=== PATIENT | female | born 1940 | race Caucasian/White ===

== ENCOUNTER 2017-08-09 19:29 | Emergency (ER) | payer MEDICARE, BC, SELFPAY | END 2017-08-09 23:24 | disposition admitted as inpatient to this hospital (09) | PROVIDERS: Family Provider Internal Medicine; PCP Internal Medicine | DX: K86.1 Other chronic pancreatitis (principal) | CPT/HCPCS: 80053; 82150; 83605; 83690; 84484; 85025; 93005; 93010; 96361; 96374; 96375; 96376; 99058; 99285; J2270; J2405 ==

== ENCOUNTER → 2017-09-05 08:51 | Outpatient (CLI) | payer MEDICARE, BC, SELFPAY ==
[2017-09-05 10:05] LABS: Digoxin 1.1 ng/mL (0.8-2.0)
== END ==
PROVIDERS: PCP Internal Medicine; Visit Provider Internal Medicine Cardiovascular Disease
DX: R00.2 Palpitations (principal); I47.1 Supraventricular tachycardia
CPT/HCPCS: 36415; 80162

== ENCOUNTER 2017-09-19 22:44 | Inpatient (IN) | payer MEDICARE, BC, SELFPAY ==
[2017-09-19 22:51] VITALS: BP 155/84; PULSE 87; RESP 20; TEMP 37.2; O2SAT 99
--- NOTE | 2017-09-19 23:05 | ED.ABDPAIN ---
HPI - Abdominal Pain General Chief Complaint: Abdominal Pain Stated Complaint: PAIN LEFT ARM AND NECK Time Seen by Provider: 09/19/17 22:47 Source: patient Mode of arrival: ambulatory Limitations: no limitations History of Present Illness HPI narrative: 77-year-old female with a history of pancreatitis from unknown etiology has been evaluated by GI at [facility] and also by her primary care doctor for this. She states that throughout today she has had worsening epigastric pain consistent with her prior diagnosis of pancreatitis however today she also has left arm and left neck pain. Denies any chest pain. Has had some nausea but no vomiting. No change in bowel habits. No fevers. Here for evaluation. Related Data Home Medications Medication Instructions Recorded Confirmed MINOXIDIL (ROGAINE 5% TOPICAL 5 TP #0 02/23/11 09/03/17 FOAM~) COENZYME Q10 (COQ10) 100 mg PO Q DAY #0 05/23/11 09/20/17 niacin 250 mg PO Q DAY #0 05/23/11 09/20/17 [BIOTIN] 1,500 mg PO QDAY #0 06/20/17 09/03/17 [FLAXSEED OIL] 2 cap PO QDAY #0 06/20/17 09/03/17 conjugated estrogens [Premarin] 0.3 mg PO QDAY #0 06/20/17 09/20/17 docusate sodium 100 mg PO QDAYP PRN #0 MDD 100 06/20/17 09/20/17 naproxen sodium [Aleve] 220 mg PO QDAY #0 06/20/17 09/20/17 potassium chloride PO SEE INSTRUCTIONS #0 06/20/17 09/03/17 spironolactone 25 mg QDAY #0 06/20/17 09/20/17 vit C,N-Yx-bfihr-lutein-zeaxan 1 cap PO BID #0 06/20/17 09/03/17 [PreserVision AREDS 2] Previous Rx's Medication Instructions Recorded digoxin [Lanoxin] 0.25 mg PO QDAY #90 tab 04/03/17 magnesium oxide 400 mg PO BID #180 tab 04/03/17 verapamil [Verelan] 180 mg PO QDAY #90 cap 04/03/17 lorazepam [Ativan] 0.5 mg PO Q6HP #50 tab 07/09/17 Allergies Allergy/AdvReac Type Severity Reaction Status Date / Time hydromorphone [HYDROMORPHONE] Allergy Severe heart Verified 09/03/17 10:57 palpitations ketorolac [KETOROLAC] Allergy Mild GI Verified 09/03/17 10:57 meloxicam [MELOXICAM] Allergy Unknown Verified 09/03/17 10:57 BANDAGE TAPE Allergy Unknown Uncoded 09/03/17 10:57 Review of Systems Constitutional Denies chills, Denies fever(s), Denies lethargy and Denies weakness ENT Comments: Left-sided neck pain Cardiovascular Denies chest pain, Denies irregular heart rhythm, Denies lightheadedness, Denies palpitations, Denies dyspnea, Denies dyspnea on exertion and Denies orthopnea Respiratory Denies cough, Denies dyspnea, Denies dyspnea on exertion and Denies wheezing Gastrointestinal Gastrointestinal: Reports abdominal pain, Denies change in stool character, Reports nausea and Denies vomiting Genitourinary Denies dysuria Musculoskeletal Comments: Left arm pain Integumentary/Breasts Denies pruritus, Denies erythema, Denies rash and Denies wounds Neurologic Denies weakness Endocrine Denies palpitations Hematologic/Lymphatic Denies easy bruising Allergic/Immunologic Denies wheezing PFSH Medical History Paroxysmal supraventricular tachycardia (Chronic 02/23/11) Acquired hypothyroidism (Chronic 11/04/12) Peripheral neuropathy (Chronic 02/27/14) Peripheral edema (Chronic 02/23/11) Constipation (Chronic) Pancreatitis (Inactive) Surgical History History of cataract removal with insertion of prosthetic lens S/P total abdominal hysterectomy and bilateral salpingo-oophorectomy Status post cholecystectomy Family History Father Family hx colonic polyps Social History household members: spouse Smoking Status: Never smoker alcohol intake: never Exam Initial Vital Signs Initial Vital Signs: Vital Signs Temperature 98.9 F 09/19/17 22:51 Pulse Rate 87 09/19/17 22:51 Respiratory Rate 20 09/19/17 22:51 Blood Pressure 155/84 H 09/19/17 22:51 Pulse Oximetry 99 09/19/17 22:51 Const General: cooperative and well developed Nutritional Appearance: well nourished Orientation: alert, awake, oriented x3 and not confused Chest Chest: normal inspection of the chest, No localized rib tenderness with anteroposterior compression and No tenderness Resp Effort & Inspection: normal respiratory effort, able to speak in complete sentences, no respiratory distress and no use of accessory muscles Auscultation: clear to auscultation bilaterally, no rales, no rhonchi and no wheezes Cardio Rate: regular rate Rhythm: regular rhythm Heart Sounds: no click, no gallops, no murmurs and no rubs Pulses: normal peripheral pulses GI Inspection: normal to inspection and non-distended Palpation: soft, No firm, guarding and No rigid Other: Epigastric abdominal pain no rebound some guarding Back/Spine/Pelvis Back: No CVA tenderness Skin General: no rashes or lesions noted, No jaundice and No petechiae Neuro General: alert, awake, oriented x3, gait normal and no focal motor deficits Speech: speech normal Extrem General: full ROM, no clubbing, cyanosis or edema, no pedal edema and no calf tenderness Course Orders Ordered: ED Orders 09/19/17 22:51 EKG-12 Lead Stat 09/19/17 23:01 Complete Blood Count AUTO DIFF Stat Comprehensive Metabolic Panel Stat Lipase Stat Troponin I Stat 09/19/17 23:51 XR chest 1V Stat 09/20/17 00:51 Consult to Physician Routine 09/20/17 05:00 Troponin I Stat Ondansetron HCl 4 mg/ Sodium (Chloride) 102 mls @ 204 mls/hr IV Q6HR PRN PRN Reason: Nausea And Vomiting Sodium Chloride (Normal Saline 0.9%) 1,000 mls @ 150 mls/hr IV CONT KWAKU Last Admin: 09/20/17 01:50 Dose: 150 mls/hr Morphine Sulfate (Morphine) 4 mg IV Q4H PRN PRN Reason: Pain, Severe Vital Signs - 8 hr 09/19/17 22:51 09/19/17 23:30 09/20/17 01:25 Temperature 98.9 F Pulse Rate 87 79 82 Respiratory Rate 20 16 19 Blood Pressure 155/84 H 135/52 H Blood Pressure [Right Arm] 139/53 H Pulse Oximetry 99 99 99 09/20/17 01:46 Temperature 98.5 F Pulse Rate 91 H Respiratory Rate 16 Blood Pressure 148/61 H Blood Pressure [Right Arm] Pulse Oximetry 99 MDM - Abdominal Pain Lab Data Attestation: I reviewed the patient's lab results. Result diagrams: 09/19/17 23:01 09/19/17 23:01 Lab Results 09/19/17 09/19/17 09/19/17 Range/Units 23:01 23:01 23:01 WBC 12.2 H (4.5-11.0) X10^3/uL RBC 4.53 (4.0-5.2) X10^6/uL Hgb 14.1 (12.0-16.0) g/dL Hct 41.4 (36-46) % MCV 91.2 (80-100) fL MCH 31.0 (26-34) PG MCHC 34.0 (30-36) % RDW 12.5 (11.6-14.8) % Plt Count 239 (150-400) X10^3/uL Neut % (Auto) 72.4 (50-75) % Lymph % (Auto) 21.4 L (25-40) % Hartley % (Auto) 4.8 (3-14) % Eos % (Auto) 1.1 L (2-4) % Baso % (Auto) 0.3 (0-2) % Neut # (Auto) 8800 H (0413-7567) /uL Sodium 141 (137-145) mmol/L Potassium 4.0 (3.4-5.1) mmol/L Chloride 101 (98-107) mmol/L Carbon Dioxide 29 (22-32) mmol/L BUN 19 H (7-17) mg/dL Creatinine 0.60 (0.52-1.04) mg/dL Estimated GFR > 60.0 (>60) mL/min BUN/Creatinine Ratio 31.7 H (6-22) Glucose 108 (80-110) mg/dL Calcium 9.7 (8.4-10.2) mg/dL Total Bilirubin 0.6 (0.2-1.3) mg/dL AST 32 (14-36) IU/L ALT 27 (9-52) IU/L Alkaline Phosphatase 58 (38-126) U/L Troponin I < 0.012 (0.01-0.034) ng/mL Total Protein 6.8 (6.3-8.2) g/dL Albumin 4.1 (3.5-5.0) g/dL Globulin 2.7 (1.7-4.1) g/dL Albumin/Globulin Ratio 1.5 (1.0-2.8) Lipase 40421 H (23-300) U/L ECG Data Attestation: I personally reviewed and interpreted this ECG as follows: Prior ECG tracings: not available for review Interpretation: Sinus rhythm Ventricular rate is 78 Normal axis Normal intervals Normal QRS Nonspecific ST T wave changes MDM Narrative Medical decision making narrative: Patient with epigastric abdominal pain and a elevated lipase concerning for recurrence of her pancreatitis. Denied need for pain medication here in the emergency department. Nonspecific ST changes on her EKG and a troponin that was negative. I suspect that her left arm symptoms are referred pain from the pancreatitis. Discussed the case with Dr. Najera who is on-call for the patient's primary care doctor group. Will admit the patient for pain control and IV fluids and NPO. We will repeat the troponin in the morning. Discussed this with the patient and . They expressed understanding and agreement with plan. Discharge Plan Departure Patient Disposition: Admitted As Inpatient Clinical Impression: Pancreatitis Discharge Date/Time: 09/20/17 01:30 Interventions: ED Discharge Assessment Last Done: 09/20/17 01:25 Admit Date/Time: 09/20/17 01:14 Admit Provider: Sam Ibrahim
[2017-09-19 23:09] LABS: Add Manual Diff / Slide Review NO; Basophils Percent Auto 0.3 % (0-2); Eosinophils Percent Auto 1.1 % (2-4); Hematocrit 41.4 % (36-46); Hemoglobin 14.1 g/dL (12.0-16.0); Lymphocytes Percent Auto 21.4 % (25-40); Mean Corpuscular Volume 91.2 fL (80-100); Monocytes Percent Auto 4.8 % (3-14); Neutrophils Absolute Auto 8800 /uL (3000-5900); Neutrophils Percent Auto 72.4 % (50-75); Platelet Count 239 X10^3/uL (150-400); Red Blood Cell Count 4.53 X10^6/uL (4.0-5.2); Red Cell Distribution Width 12.5 % (11.6-14.8); White Blood Cell Count 12.2 X10^3/uL (4.5-11.0)
[2017-09-19 23:16] LABS: Alanine Aminotransferase 27 IU/L (9-52); Albumin 4.1 g/dL (3.5-5.0); Albumin Globulin Ratio 1.5 (1.0-2.8); Alkaline Phosphatase 58 U/L (38-126); Aspartate Aminotransferase 32 IU/L (14-36); BUN Creatinine Ratio 31.7 (6-22); Bilirubin Total 0.6 mg/dL (0.2-1.3); Blood Urea Nitrogen 19 mg/dL (7-17); Calcium 9.7 mg/dL (8.4-10.2); Carbon Dioxide 29 mmol/L (22-32); Chloride 101 mmol/L (98-107); Estimated Glomerular Filt Rate > 60.0 mL/min (>60); Globulin 2.7 g/dL (1.7-4.1); Glucose 108 mg/dL (80-110); Sodium 141 mmol/L (137-145); Total Protein 6.8 g/dL (6.3-8.2)
[2017-09-19 23:17] LABS: HEMOLYSIS 54 (0-50)
--- NOTE | 2017-09-19 23:20 | PC.NURSE ---
Pt states thinks having pancreatitis onset 3 hours prior to arrival 3-10 pain with several episodes since May 2017. Also reports having left arm pain that radiated to neck prior to arrival, intermittent and not present at assessment time. Denies sob or CP. 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
[2017-09-19 23:24] LABS: Troponin I < 0.012 ng/mL (0.01-0.034)
[2017-09-19 23:30] VITALS: BP 139/53; PULSE 79; RESP 16; O2SAT 99
[2017-09-19 23:39] LABS: Lipase 41600 U/L (23-300)
--- NOTE | 2017-09-19 23:51 | DI.RAD.S_ITS ---
PROCEDURE: XR CHEST 1V INDICATIONS: Chest pain TECHNIQUE: One view of the chest was acquired. COMPARISON: [facility], , CHEST 1 VIEW, 06/20/2017, 15:10. FINDINGS: Surgical changes and devices: None. Lungs and pleura: No pleural effusions or pneumothorax. Lungs are clear. Mediastinum: Mediastinal contours appear normal. Heart size is normal. Bones and chest wall: No suspicious bony lesions. Overlying soft tissues appear unremarkable. IMPRESSION: No acute cardiopulmonary abnormality. Source of chest pain not seen. Dictated by: Hussain Camacho M.D. on 09/20/2017 at 8:10 Approved by: Hussain Camacho M.D. on 09/20/2017 at 8:11
[2017-09-20 01:25] VITALS: BP 135/52; PULSE 82; RESP 19; O2SAT 99
[2017-09-20 01:46] VITALS: BP 148/61; PULSE 91; RESP 16; TEMP 36.9; O2SAT 99
[2017-09-20] MEDS: SODIUM CHLORIDE 0.9% 1,000 ML 150 ML IV (01:50)
[2017-09-20 02:25] VITALS: BMI 20.7
[2017-09-20] MEDS: MORPHINE 4 MG/ML INJ IV (03:26)
--- NOTE | 2017-09-20 05:43 | PC.NURSE ---
NOC Shift: Pt admitted tonight for acute Pancreatitis, has history of multiple admissions for this. Having acute left shoulder, back pain. Troponin negative on admit. Pt AAOx3, w/o distress. VSS, off tele. Ambulates w/o difficulty. NPO w/active BT's, abdomen soft, nondistended. IVF's started after new PIV started. Admitted floor care.
[2017-09-20 05:44] LABS: Troponin I < 0.012 ng/mL (0.01-0.034)
[2017-09-20 07:34] VITALS: BP 120/37; PULSE 93; RESP 16; TEMP 36.8; O2SAT 98
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
[2017-09-20] MEDS: KCL 20 MEQ IN NS 1,000 ML 100 MEQ IV (08:45)
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
--- NOTE | 2017-09-20 10:30 | CM.DANOTE ---
DCP Assessment: Pt is a 77 yo female, resident of [place]. Pt's PCP is Dr Ibrahim; Insurance is Medicare/[employer]. Pt w/multiple admissions for pancreatitis. Pt awaiting transfer this morning to [facility] pending bed opening. Dr Ibrahim is hopeful pt can be re-evaluated for replacement of pancreatic duct stents. RADHA Guillory
--- NOTE | 2017-09-20 13:39 | PC.NURSE ---
pt transferred at this time to [facility] to follow up for repeated pancreatitis=- all questions answered to pts satisfaction
--- NOTE | 2017-09-20 16:57 | PM.DS.1 ---
History of Present Illness Chief complaint: PAIN LEFT ARM AND NECK Narrative: Zahida Ashley is a 77 year old female who was admitted for her 4th hospitalization for pancreatitis. Patient presented to the emergency department late last evening the day prior to admission with symptoms of abdominal pain back pain and left shoulder pain. This is very similar what she has felt before with previous admissions for pancreatitis. Patient reports feeling absolutely normal the morning of the 19 of September before feeling worse in the evening and presenting to the ER later that day. She does admit to perhaps a week or so of thoracic midback pain but her abdomen was completely asymptomatic and she did really think that was connected to her pancreas. Patient has been admitted several times as above. She was transferred to [place] at [facility] where she had endoscopic ultrasound with her 1st hospitalization and no evidence of malignancy was noted. She responded to normal treatment with IV fluids IV meds and kept NPO. She returned home but rapidly had recurrence of symptoms. She was actually sent to [facility] in [place], were the GI evaluated her and sent her back to [facility] in [place]. There she underwent repeat ERCP which showed mild dilatation of the pancreatic duct, sphincterotomy was performed upon which a small amount of nodular appearing tissue seem to emerge from the biliary orifice into the biliary sphincter. This was biopsied and subsequently returned without evidence of malignancy. Stent was placed x2 into the biliary tree and then a stent was placed into the pancreatic duct as well. Patient did well with that hospitalization was discharged home. Was seen in consultation by GI in [place] move upon receipt of normal pathology from the biopsies removed her stents in another procedure approximately 10 days or so after they had been placed. Patient has done well for about 2 weeks since the stents were removed (I do not actually have a procedure note to give me the exact date of stent removal). She now presents with recurrent pancreatitis as above. Discharge Providers Date of admission: 09/20/17 01:14 Primary care physician: Sam Ibrahim MD Consults: Discharge provider: Sam Ibrahim MD Discharge Date: 09/20/17 Summary Discharge Diagnosis: 1. Acute pancreatitis 2. History SVT, not present during this hospitalization Hospital Course: Patient was admitted to the hospital made NPO with IV fluids IV antiemetics and IV pain medicine as per usual protocol for acute pancreatitis. Given this was her 4th hospitalization [facility] was contacted and her case and care and prior history was discussed with hospitalist at that facility. He readily agreed to accept the patient in transfer with consultation by Gastroenterology upon her arrival for probable repeat ERCP and/or stent placement Patient had really minor symptoms during her stay here at [facility]. She was not here long enough to repeat blood work. She was cardiovascularly stable. No evidence of any complicating factor. Exam Vital Signs (past 8 hours): Pulse Oximetry 98 Oxygen Delivery Method Room Air Objective Labs Result Diagrams: 09/19/17 23:01 09/19/17 23:01 Labs: Laboratory Results - last 24 hr 09/19/17 09/19/17 09/19/17 23:01 23:01 23:01 WBC 12.2 H RBC 4.53 Hgb 14.1 Hct 41.4 MCV 91.2 MCH 31.0 MCHC 34.0 RDW 12.5 Plt Count 239 Neut % (Auto) 72.4 Lymph % (Auto) 21.4 L [place] % (Auto) 4.8 Eos % (Auto) 1.1 L Baso % (Auto) 0.3 Neut # (Auto) 8800 H Sodium 141 Potassium 4.0 Chloride 101 Carbon Dioxide 29 BUN 19 H Creatinine 0.60 Estimated GFR > 60.0 BUN/Creatinine Ratio 31.7 H Glucose 108 Calcium 9.7 Total Bilirubin 0.6 AST 32 ALT 27 Alkaline Phosphatase 58 Troponin I < 0.012 Total Protein 6.8 Albumin 4.1 Globulin 2.7 Albumin/Globulin Ratio 1.5 Lipase 65240 H Nasal Screen MRSA (PCR) 09/20/17 09/20/17 03:25 05:02 WBC RBC Hgb Hct MCV MCH MCHC RDW Plt Count Neut % (Auto) Lymph % (Auto) [place] % (Auto) Eos % (Auto) Baso % (Auto) Neut # (Auto) Sodium Potassium Chloride Carbon Dioxide BUN Creatinine Estimated GFR BUN/Creatinine Ratio Glucose Calcium Total Bilirubin AST ALT Alkaline Phosphatase Troponin I < 0.012 Total Protein Albumin Globulin Albumin/Globulin Ratio Lipase Nasal Screen MRSA (PCR) Negative for mrsa Discharge Plan Discharge Plan Discharge Problem: Pancreatitis Patient Disposition: [facility] Under care of provider: Vladimir Wang MD Discharge Health Status Multidrug resistant organism: No MDRO Discharge Data Primary Care Provider: Sam Ibrahim Attending Provider: Sam Ibrahim Admit Date/Time: 09/20/17 01:14
--- NOTE | 2017-09-20 17:17 | P.DS_ITS ---
History of Present Illness Chief complaint: PAIN LEFT ARM AND NECK Narrative: Zahida Ashley is a 77 year old female who was admitted for her 4th hospitalization for pancreatitis. Patient presented to the emergency department late last evening the day prior to admission with symptoms of abdominal pain back pain and left shoulder pain. This is very similar what she has felt before with previous admissions for pancreatitis. Patient reports feeling absolutely normal the morning of the 19 of September before feeling worse in the evening and presenting to the ER later that day. She does admit to perhaps a week or so of thoracic midback pain but her abdomen was completely asymptomatic and she did really think that was connected to her pancreas. Patient has been admitted several times as above. She was transferred to [place] at [facility] where she had endoscopic ultrasound with her 1st hospitalization and no evidence of malignancy was noted. She responded to normal treatment with IV fluids IV meds and kept NPO. She returned home but rapidly had recurrence of symptoms. She was actually sent to [facility] in [place], were the GI evaluated her and sent her back to [facility] in [place]. There she underwent repeat ERCP which showed mild dilatation of the pancreatic duct, sphincterotomy was performed upon which a small amount of nodular appearing tissue seem to emerge from the biliary orifice into the biliary sphincter. This was biopsied and subsequently returned without evidence of malignancy. Stent was placed x2 into the biliary tree and then a stent was placed into the pancreatic duct as well. Patient did well with that hospitalization was discharged home. Was seen in consultation by GI in [place] move upon receipt of normal pathology from the biopsies removed her stents in another procedure approximately 10 days or so after they had been placed. Patient has done well for about 2 weeks since the stents were removed (I do not actually have a procedure note to give me the exact date of stent removal). She now presents with recurrent pancreatitis as above. Discharge Providers Date of admission: 09/20/17 01:14 Primary care physician: Sam Ibrahim MD Consults: Discharge provider: Sam Ibrahim MD Discharge Date: 09/20/17 Summary Discharge Diagnosis: 1. Acute pancreatitis 2. History SVT, not present during this hospitalization Hospital Course: Patient was admitted to the hospital made NPO with IV fluids IV antiemetics and IV pain medicine as per usual protocol for acute pancreatitis. Given this was her 4th hospitalization [facility] was contacted and her case and care and prior history was discussed with hospitalist at that facility. He readily agreed to accept the patient in transfer with consultation by Gastroenterology upon her arrival for probable repeat ERCP and/or stent placement Patient had really minor symptoms during her stay here at [facility]. She was not here long enough to repeat blood work. She was cardiovascularly stable. No evidence of any complicating factor. Exam Vital Signs (past 8 hours): Pulse Oximetry 98 Oxygen Delivery Method Room Air Objective Labs Result Diagrams: 09/19/17 23:01 09/19/17 23:01 Labs: Laboratory Results - last 24 hr 09/19/17 09/19/17 09/19/17 23:01 23:01 23:01 WBC 12.2 H RBC 4.53 Hgb 14.1 Hct 41.4 MCV 91.2 MCH 31.0 MCHC 34.0 RDW 12.5 Plt Count 239 Neut % (Auto) 72.4 Lymph % (Auto) 21.4 L [place] % (Auto) 4.8 Eos % (Auto) 1.1 L Baso % (Auto) 0.3 Neut # (Auto) 8800 H Sodium 141 Potassium 4.0 Chloride 101 Carbon Dioxide 29 BUN 19 H Creatinine 0.60 Estimated GFR > 60.0 BUN/Creatinine Ratio 31.7 H Glucose 108 Calcium 9.7 Total Bilirubin 0.6 AST 32 ALT 27 Alkaline Phosphatase 58 Troponin I < 0.012 Total Protein 6.8 Albumin 4.1 Globulin 2.7 Albumin/Globulin Ratio 1.5 Lipase 57486 H Nasal Screen MRSA (PCR) 09/20/17 09/20/17 03:25 05:02 WBC RBC Hgb Hct MCV MCH MCHC RDW Plt Count Neut % (Auto) Lymph % (Auto) [place] % (Auto) Eos % (Auto) Baso % (Auto) Neut # (Auto) Sodium Potassium Chloride Carbon Dioxide BUN Creatinine Estimated GFR BUN/Creatinine Ratio Glucose Calcium Total Bilirubin AST ALT Alkaline Phosphatase Troponin I < 0.012 Total Protein Albumin Globulin Albumin/Globulin Ratio Lipase Nasal Screen MRSA (PCR) Negative for mrsa Discharge Plan Discharge Plan Discharge Problem: Pancreatitis Patient Disposition: [facility] Under care of provider: Vladimir Wang MD Discharge Health Status Multidrug resistant organism: No MDRO Discharge Data Primary Care Provider: Sam Ibrahim Attending Provider: Sam Ibrahim Admit Date/Time: 09/20/17 01:14
== END 2017-09-20 13:48 | disposition short-term general hospital (02) | DRG 439 ==
LOC: ED 09-20 00:50 → ICU 09-20 01:15
PROVIDERS: Admitting Provider Internal Medicine; Emergency Provider Emergency Medicine; Family Provider Internal Medicine; PCP Internal Medicine; Visit Provider Internal Medicine
DX: K85.80 Other acute pancreatitis without necrosis or infection (principal); I47.1 Supraventricular tachycardia; K86.1 Other chronic pancreatitis; E03.8 Other specified hypothyroidism
CPT/HCPCS: 36415; 36591; 71045; 80053; 83690; 84484; 85025; 87797; 93005; 96374; 96375; 99282; 99285; J2270

== ENCOUNTER → 2017-10-18 07:07 | Outpatient (CLI) | payer MEDICARE, BC, SELFPAY ==
[2017-09-20 02:25] VITALS: BMI 20.7
[2017-10-18 08:31] LABS: Add Manual Diff / Slide Review NO; Basophils Percent Auto 1.3 % (0-2); Eosinophils Percent Auto 5.3 % (2-4); Hematocrit 42.5 % (36-46); Hemoglobin 14.3 g/dL (12.0-16.0); Lymphocytes Percent Auto 42.6 % (25-40); Mean Corpuscular HGB Conc 33.7 % (30-36); Mean Corpuscular Hemoglobin 31.1 PG (26-34); Mean Corpuscular Volume 92.2 fL (80-100); Monocytes Percent Auto 7.6 % (3-14); Neutrophils Absolute Auto 2100 /uL (3000-5900); Neutrophils Percent Auto 43.2 % (50-75); Platelet Count 219 X10^3/uL (150-400); Red Blood Cell Count 4.61 X10^6/uL (4.0-5.2); Red Cell Distribution Width 12.9 % (11.6-14.8); White Blood Cell Count 4.9 X10^3/uL (4.5-11.0)
[2017-10-18 08:52] LABS: Alanine Aminotransferase 25 IU/L (9-52); Albumin 4.1 g/dL (3.5-5.0); Albumin Globulin Ratio 1.4 (1.0-2.8); Alkaline Phosphatase 73 U/L (38-126); Amylase 76 U/L (30-110); Aspartate Aminotransferase 23 IU/L (14-36); Bilirubin Total 1.2 mg/dL (0.2-1.3); Cholesterol 179 mg/dL (140-199); Gamma Glutamyl Transpeptidase 24 U/L (12-43); Globulin 2.9 g/dL (1.7-4.1); HDL Cholesterol 64 mg/dL (40-60); HEMOLYSIS < 15 (0-50); LDL Cholesterol Calculated 88 mg/dL (<100); Lipase 143 U/L (23-300); Triglycerides 134 mg/dL (35-150)
[2017-10-18 08:57] LABS: Erythrocyte Sedimentation Rate 4 MM/HR (0-20)
== END ==
PROVIDERS: PCP Internal Medicine; Visit Provider Internal Medicine Gastroenterology
DX: K85.90 Acute pancreatitis without necrosis or infection, unspecified (principal)
CPT/HCPCS: 36415; 80061; 80076; 82150; 82977; 83690; 85025; 85651

== ENCOUNTER → 2018-01-09 15:38 | Outpatient (CLI) | payer MEDICARE, BC, SELFPAY ==
[2018-01-09 16:09] LABS: Add Manual Diff / Slide Review NO; Basophils Percent Auto 0.6 % (0-2); Eosinophils Percent Auto 2.9 % (2-4); Hematocrit 41.6 % (36-46); Hemoglobin 14.1 g/dL (12.0-16.0); Lymphocytes Percent Auto 31.8 % (25-40); Mean Corpuscular HGB Conc 33.8 % (30-36); Mean Corpuscular Hemoglobin 31.1 PG (26-34); Mean Corpuscular Volume 91.8 fL (80-100); Neutrophils Absolute Auto 4500 /uL (3000-5900); Neutrophils Percent Auto 59.7 % (50-75); Platelet Count 237 X10^3/uL (150-400); Red Blood Cell Count 4.53 X10^6/uL (4.0-5.2); Red Cell Distribution Width 12.8 % (11.6-14.8); White Blood Cell Count 7.5 X10^3/uL (4.5-11.0)
[2018-01-09 17:19] LABS: Alanine Aminotransferase 22 IU/L (9-52); Albumin 4.2 g/dL (3.5-5.0); Albumin Globulin Ratio 1.7 (1.0-2.8); Alkaline Phosphatase 64 U/L (38-126); Aspartate Aminotransferase 22 IU/L (14-36); BUN Creatinine Ratio 28.3 (6-22); Blood Urea Nitrogen 17 mg/dL (7-17); Calcium 9.9 mg/dL (8.4-10.2); Carbon Dioxide 32 mmol/L (22-32); Chloride 99 mmol/L (98-107); Estimated Glomerular Filt Rate > 60.0 mL/min (>60); Globulin 2.5 g/dL (1.7-4.1); Glucose 151 mg/dL (80-110); HEMOLYSIS < 15 (0-50); Lipase 111 U/L (23-300); Potassium 4.1 mmol/L (3.4-5.1); Sodium 141 mmol/L (137-145); Total Protein 6.7 g/dL (6.3-8.2)
[2018-01-10 11:52] LABS: Hemoglobin A1C% w Est Avg Glu 5.3 % (4.0-6.0)
== END ==
PROVIDERS: Family Provider Internal Medicine; PCP Internal Medicine; Visit Provider Internal Medicine Gastroenterology
DX: K85.90 Acute pancreatitis without necrosis or infection, unspecified (principal); K21.0 Gastro-esophageal reflux disease with esophagitis; R89.9 Unspecified abnormal finding in specimens from other organs, systems and tissues
CPT/HCPCS: 36415; 80053; 83036; 83690; 85025

== ENCOUNTER 2018-02-10 00:08 | Emergency (ER) | payer MEDICARE, BC, SELFPAY ==
[2018-02-10 00:18] VITALS: BP 130/47; PULSE 82; RESP 16; TEMP 36.8; O2SAT 98; BMI 20.2
[2018-02-10 00:49] LABS: Add Manual Diff / Slide Review NO; Basophils Percent Auto 0.7 % (0-2); Eosinophils Percent Auto 1.6 % (2-4); Hematocrit 39.9 % (36-46); Hemoglobin 13.6 g/dL (12.0-16.0); Lymphocytes Percent Auto 28.6 % (25-40); Mean Corpuscular Hemoglobin 31.3 PG (26-34); Mean Corpuscular Volume 92.1 fL (80-100); Monocytes Percent Auto 7.3 % (3-14); Neutrophils Absolute Auto 4900 /uL (3000-5900); Neutrophils Percent Auto 61.8 % (50-75); Platelet Count 236 X10^3/uL (150-400); Red Blood Cell Count 4.34 X10^6/uL (4.0-5.2); Red Cell Distribution Width 12.9 % (11.6-14.8); White Blood Cell Count 7.9 X10^3/uL (4.5-11.0)
[2018-02-10] MEDS: SODIUM CHLORIDE 0.9% 1,000 ML 1000 ML IV (00:49)
[2018-02-10 00:59] LABS: Alanine Aminotransferase 21 IU/L (9-52); Albumin 4.1 g/dL (3.5-5.0); Albumin Globulin Ratio 1.7 (1.0-2.8); Alkaline Phosphatase 59 U/L (38-126); Amylase 58 U/L (30-110); Aspartate Aminotransferase 20 IU/L (14-36); BUN Creatinine Ratio 33.3 (6-22); Bilirubin Total 1.2 mg/dL (0.2-1.3); Blood Urea Nitrogen 20 mg/dL (7-17); Calcium 9.8 mg/dL (8.4-10.2); Carbon Dioxide 29 mmol/L (22-32); Chloride 99 mmol/L (98-107); Estimated Glomerular Filt Rate > 60.0 mL/min (>60); Globulin 2.4 g/dL (1.7-4.1); Glucose 155 mg/dL (80-110); HEMOLYSIS < 15 (0-50); Lipase 78 U/L (23-300); Potassium 3.7 mmol/L (3.4-5.1); Sodium 137 mmol/L (137-145); Total Protein 6.5 g/dL (6.3-8.2)
--- NOTE | 2018-02-10 01:04 | ED_ITS ---
HPI - Abdominal Pain General Chief Complaint: Abdominal Pain Stated Complaint: STOMACH/MID BACK PAIN Time Seen by Provider: 02/10/18 00:23 Source: patient and old records reviewed Mode of arrival: ambulatory Limitations: no limitations History of Present Illness HPI narrative: This is a 78-year-old female comes to the emergency department with concern for pancreatitis. Patient states that she started having upper abdominal pain earlier today. I radiates through to her mid back region. She has had pancreatitis several times in the past and has even been seen at [facility] and had stents as well as other procedures for this. She states she was in walking earlier today and had a attack which was quite painful. She elected to fly home and she figured this was likely the cause. And then came directly to the emergency department afterwards. Patient states that she is still having some pain although not nearly significant. She is not having any shortness of breath she denies any chest pain or radiation elsewhere. She has had some nausea but no vomiting. No diarrhea or constipation but she states that that is typical for her. She denies any fevers. She does not drink alcohol. She had elevated triglycerides but they have been improved with flaxseed oil. She used to be on Premarin which was thought to be possible exacerbating factor for her pancreatitis. There is no clear cause that her physicians have found. She has also had an EGD which saw some erosive changes. Patient defers any pain or antinausea medications. Related Data Home Medications Medication Instructions Recorded Confirmed MINOXIDIL (ROGAINE 5% TOPICAL See Label Instructions .ROUTE 02/23/11 11/16/17 FOAM~) .COMPLEX #0 coenzyme Q10 100 mg PO Q DAY #0 05/23/11 11/16/17 niacin 250 mg PO Q DAY #0 05/23/11 11/16/17 [BIOTIN] 1,500 mg PO QDAY #0 06/20/17 11/16/17 [FLAXSEED OIL] 2 cap PO QDAY #0 06/20/17 11/16/17 conjugated estrogens [Premarin] 0.3 mg PO QDAY #0 06/20/17 11/16/17 docusate sodium 100 mg PO QDAYP PRN #0 MDD 100 06/20/17 11/16/17 naproxen sodium [Aleve] 220 mg PO QDAY #0 06/20/17 11/16/17 spironolactone 25 mg QDAY #0 06/20/17 11/16/17 vit C,J-Lx-soasd-lutein-zeaxan 1 cap PO DAILY #0 06/20/17 11/16/17 [PreserVision AREDS-2] omeprazole 10 mg capsule,delayed 10 mg PO DAILY 11/16/17 11/16/17 release Previous Rx's Medication Instructions Recorded digoxin [Lanoxin] 0.25 mg PO QDAY #90 tab 04/03/17 magnesium oxide 400 mg PO BID #180 tab 04/03/17 verapamil [Verelan] 180 mg PO QDAY #90 cap 04/03/17 potassium chloride ER 20 mEq 1 meq PO BID #540 tab 10/08/17 tablet,extended release(part/cryst) lorazepam 0.5 mg tablet 0.5 mg PO Q6HP #50 tab 01/10/18 Allergies Allergy/AdvReac Type Severity Reaction Status Date / Time hydromorphone [HYDROMORPHONE] Allergy Severe heart Verified 02/10/18 00:21 palpitations ketorolac [KETOROLAC] Allergy Mild GI Verified 02/10/18 00:21 meloxicam [MELOXICAM] Allergy Unknown Verified 02/10/18 00:21 BANDAGE TAPE Allergy Unknown Uncoded 10/05/17 14:36 Review of Systems Review of Systems All systems reviewed & are unremarkable except as noted in HPI and below Constitutional Denies fever(s) Cardiovascular Denies chest pain and Denies dyspnea Respiratory Denies dyspnea Gastrointestinal Gastrointestinal: Reports abdominal pain, Denies change in bowel habits, Denies constipation, Denies diarrhea, Reports nausea and Denies vomiting Genitourinary Denies urinary frequency and Denies urinary urgency Musculoskeletal Reports back pain (Abdominal pain radiates to back) [facility] Medical History Paroxysmal supraventricular tachycardia (Chronic 02/23/11) Acquired hypothyroidism (Chronic 11/04/12) Peripheral neuropathy (Chronic 02/27/14) Peripheral edema (Chronic 02/23/11) Constipation (Chronic) History of adenomatous polyp of colon (Inactive 02/23/11) Lipoma (Chronic 02/23/11) Diverticular disease (Chronic) Hyperlipidemia (Chronic) Melanoma (Chronic ~2002) Pancreatitis (Resolved) Surgical History History of cataract removal with insertion of prosthetic lens S/P total abdominal hysterectomy and bilateral salpingo-oophorectomy Status post cholecystectomy Social History household members: spouse Smoking Status: Never smoker alcohol intake: never Exam Narrative Exam Narrative: GENERAL: Alert and oriented x three, thin, well-nourished, well- appearing female in mild distress. HEENT: Head normocephalic, atraumatic, EOMI, pupils reactive, face symmetric, moist mucous membranes NECK: Supple, full range of motion CARDIOVASCULAR: Regular rate and rhythm without murmurs, rubs or gallops. RESPIRATORY: Breath sounds equal bilaterally, no wheezes rales or rhonchi. ABDOMEN: Soft, mild epigastric tenderness. Normoactive bowel sounds all 4 quadrants. No guarding or rebound, rigidity, no mass : No CVA tenderness EXTREMITIES: Normal range of motion, no clubbing or edema. Neurovascularly intact NEUROLOGICAL: Cranial nerves II through XII grossly intact. Moving all extremities SKIN: Warm, dry, no petechiae, no rashes or lesions. Initial Vital Signs Initial Vital Signs: Vital Signs Temperature 98.2 F 02/10/18 00:18 Pulse Rate 82 02/10/18 00:18 Respiratory Rate 16 02/10/18 00:18 Blood Pressure 130/47 L 02/10/18 00:18 Pulse Oximetry 98 02/10/18 00:18 Course Orders Ordered: ED Orders 02/10/18 00:40 Amylase Stat Complete Blood Count AUTO DIFF Stat Comprehensive Metabolic Panel Stat Lipase Stat 02/10/18 01:37 Arterial Blood Gas Stat Discontinued Medications Sodium Chloride (Normal Saline 0.9%) 1,000 mls @ 1,000 mls/hr IV BOLUS ONE Stop: 02/10/18 01:30 Last Infusion: 02/10/18 01:40 Dose: 0 mls/hr Admin: 02/10/18 00:49 Dose: 1,000 mls/hr Sodium Chloride (Normal Saline 0.9%) 1,000 mls @ 150 mls/hr IV CONT KWAKU Last Admin: 02/10/18 02:02 Dose: Not Given Reevaluation(s) Reevaluation #1: recheck, discussed labs patient feels comfortable returning home. We did discuss that we did not clearly rule out other issues from cardiac perspective, ect. Patient feels comfortable from this perspective and prefers to return home at this time. Time: 01:17 Vital Signs - 8 hr 02/10/18 00:18 02/10/18 01:40 Temperature 98.2 F 98.1 F Pulse Rate 82 72 Respiratory Rate 16 16 Blood Pressure 130/47 L 123/60 Pulse Oximetry 98 98 MDM - Abdominal Pain Lab Data Result diagrams: 02/10/18 00:40 02/10/18 00:40 Lab Results 02/10/18 02/10/18 Range/Units 00:40 00:40 WBC 7.9 (4.5-11.0) X10^3/uL RBC 4.34 (4.0-5.2) X10^6/uL Hgb 13.6 (12.0-16.0) g/dL Hct 39.9 (36-46) % MCV 92.1 (80-100) fL MCH 31.3 (26-34) PG MCHC 34.0 (30-36) % RDW 12.9 (11.6-14.8) % Plt Count 236 (150-400) X10^3/uL Neut % (Auto) 61.8 (50-75) % Lymph % (Auto) 28.6 (25-40) % Gaines % (Auto) 7.3 (3-14) % Eos % (Auto) 1.6 L (2-4) % Baso % (Auto) 0.7 (0-2) % Neut # (Auto) 4900 (9562-1867) /uL Sodium 137 (137-145) mmol/L Potassium 3.7 (3.4-5.1) mmol/L Chloride 99 (98-107) mmol/L Carbon Dioxide 29 (22-32) mmol/L BUN 20 H (7-17) mg/dL Creatinine 0.60 (0.52-1.04) mg/dL Estimated GFR > 60.0 (>60) mL/min BUN/Creatinine Ratio 33.3 H (6-22) Glucose 155 H (80-110) mg/dL Calcium 9.8 (8.4-10.2) mg/dL Total Bilirubin 1.2 (0.2-1.3) mg/dL AST 20 (14-36) IU/L ALT 21 (9-52) IU/L Alkaline Phosphatase 59 (38-126) U/L Total Protein 6.5 (6.3-8.2) g/dL Albumin 4.1 (3.5-5.0) g/dL Globulin 2.4 (1.7-4.1) g/dL Albumin/Globulin Ratio 1.7 (1.0-2.8) Amylase 58 (30-110) U/L Lipase 78 (23-300) U/L Discharge Plan Departure Patient Disposition: Home Clinical Impression: Abdominal pain Discharge Date/Time: 02/10/18 01:40 Interventions: ED Discharge Assessment Last Done: 02/10/18 01:40 Instructions: DI for Abdominal Pain-Adult Activity Restrictions/Additional Instructions: Follow-up on Sunday with your primary care physician for recheck. They may wish to recheck your pancreatic enzymes here continuing to have symptoms. You may continue your home medications as prescribed. I would recommend a clear liquid diet for the next 24 hr or until your symptoms resolved. You may then advance her diet as tolerated. Return to the emergency department for fevers, increasing abdominal pain, persistent vomiting, black or bloody stools, syncope, chest pain or shortness of breath or other new or concerning symptoms. Prescriptions: No Action MINOXIDIL (ROGAINE 5% TOPICAL FOAM~) aerosol See Label Instructions .ROUTE .COMPLEX Qty: 0 RF: 0 niacin 250 MG tablet 250 mg PO Q DAY Qty: 0 RF: 0 coenzyme Q10 tablet 100 mg PO Q DAY Qty: 0 RF: 0 digoxin [Lanoxin] 250 MCG tablet 0.25 mg PO QDAY Qty: 90 RF: 2 verapamil [Verelan] 180 MG capsule,ext rel. pellets 24 hr 180 mg PO QDAY Qty: 90 RF: 2 magnesium oxide 400 MG tablet 400 mg PO BID Qty: 180 RF: 3 conjugated estrogens [Premarin] 0.3 MG tablet 0.3 mg PO QDAY Qty: 0 RF: 0 vit C,P-Ky-jvxfp-lutein-zeaxan [PreserVision AREDS-2] 1 EACH capsule 1 cap PO DAILY Qty: 0 RF: 0 [BIOTIN] 1,500 mg PO QDAY Qty: 0 RF: 0 [FLAXSEED OIL] 2 cap PO QDAY Qty: 0 RF: 0 docusate sodium 100 MG capsule 100 mg PO QDAYP MDD 100 PRN (Reason: Constipation) Qty: 0 RF: 0 naproxen sodium [Aleve] 220 MG tablet 220 mg PO QDAY Qty: 0 RF: 0 spironolactone 25 MG tablet 25 mg QDAY Qty: 0 RF: 0 potassium chloride 20 mEq tablet,ER particles/crystals 1 meq PO BID Qty: 540 RF: 0 lorazepam [Ativan] 0.5 mg tablet 0.5 mg PO Q6HP Qty: 50 RF: 0 omeprazole 10 mg capsule,delayed release(DR/EC) 10 mg PO DAILY RF: 0 Referrals: Sam Ibrahim MD [Primary Care Provider] -
[2018-02-10 01:40] VITALS: BP 123/60; PULSE 72; RESP 16; TEMP 36.7; O2SAT 98
== END 2018-02-10 01:40 | disposition home or self-care (01) ==
PROVIDERS: Emergency Provider Emergency Medicine; Family Provider Internal Medicine; PCP Internal Medicine
DX: R10.9 Unspecified abdominal pain (principal)
CPT/HCPCS: 36415; 36591; 80053; 82150; 83690; 85025; 96360; 99283; 99284

== ENCOUNTER → 2018-02-22 10:51 | Outpatient (CLI) | payer MEDICARE, BC, SELFPAY ==
[2018-02-22 12:30] LABS: Alanine Aminotransferase 25 IU/L (9-52); Albumin 4.3 g/dL (3.5-5.0); Albumin Globulin Ratio 1.5 (1.0-2.8); Alkaline Phosphatase 68 U/L (38-126); Aspartate Aminotransferase 21 IU/L (14-36); BUN Creatinine Ratio 22.9 (6-22); Bilirubin Total 0.9 mg/dL (0.2-1.3); Blood Urea Nitrogen 16 mg/dL (7-17); Calcium 9.7 mg/dL (8.4-10.2); Carbon Dioxide 30 mmol/L (22-32); Chloride 100 mmol/L (98-107); Estimated Glomerular Filt Rate > 60.0 mL/min (>60); Globulin 2.8 g/dL (1.7-4.1); Glucose 87 mg/dL (80-110); HEMOLYSIS < 15 (0-50); Lipase 121 U/L (23-300); Potassium 4.3 mmol/L (3.4-5.1); Sodium 142 mmol/L (137-145); Total Protein 7.1 g/dL (6.3-8.2)
[2018-02-22 12:34] LABS: Digoxin 0.8 ng/mL (0.8-2.0)
[2018-02-22 13:00] LABS: TSH w/ Reflex to FT4 0.09 uIU/mL (0.47-4.68)
[2018-02-22 13:32] LABS: Free T4, Direct Thyroxine 1.97 ng/dL (0.78-2.19)
== END ==
PROVIDERS: PCP Internal Medicine; Visit Provider Internal Medicine
DX: E03.9 Hypothyroidism, unspecified (principal); I47.1 Supraventricular tachycardia; R10.9 Unspecified abdominal pain
CPT/HCPCS: 36415; 80053; 80162; 83690; 84439; 84443

== ENCOUNTER → 2018-03-29 07:36 | Outpatient (CLI) | payer MEDICARE, BC, SELFPAY ==
--- NOTE | 2018-03-29 | DI.MG.S_ITS ---
BILATERAL DIGITAL SCREENING MAMMOGRAM 3D/2D WITH CAD: 03/29/2018 CLINICAL: Routine screening. Family history of breast cancer. Comparison is made to exams dated: 01/30/2017 mammogram, 01/27/2016 mammogram, and 01/25/2015 mammogram - [facility]. There are scattered fibroglandular elements in both breasts. Current study was also evaluated with a Computer Aided Detection (CAD) system. There are benign post operative findings in the left breast. No significant masses, calcifications, or other findings are seen in either breast. There has been no significant interval change. IMPRESSION: There is no mammographic evidence of malignancy. A 1 year screening mammogram is recommended. This exam was interpreted at Station ID: [id number]. NOTE: For mammograms, a report in lay terms will be sent to the patient. Approximately 15% of breast malignancies will not be visualized mammographically. In the management of a palpable breast mass, a negative mammogram must not discourage biopsy of a clinically suspicious lesion. Electronically Signed By: Ellyn stevens/jonathan:03/29/2018 08:36:59 letter sent: Normal Exam ACR BI-RADS Category 2: Benign Finding(s) 3342F
== END ==
PROVIDERS: Family Provider Internal Medicine; PCP Internal Medicine; Visit Provider Internal Medicine
DX: Z12.31 Encounter for screening mammogram for malignant neoplasm of breast (principal); Z80.3 Family history of malignant neoplasm of breast
CPT/HCPCS: 77063; 77067

== ENCOUNTER → 2018-05-13 10:11 | Outpatient (CLI) | payer MEDICARE, BC, SELFPAY | PROVIDERS: Family Provider Internal Medicine; PCP Internal Medicine; Visit Provider Internal Medicine | DX: R30.0 Dysuria (principal) | CPT/HCPCS: 87077; 87086; 87186 ==

== ENCOUNTER → 2018-08-13 10:33 | Outpatient (CLI) | payer MEDICARE, BC, SELFPAY ==
[2018-08-13 11:27] LABS: Alanine Aminotransferase 13 IU/L (9-52); Albumin 4.5 g/dL (3.5-5.0); Albumin Globulin Ratio 1.7 (1.0-2.8); Alkaline Phosphatase 77 U/L (38-126); Aspartate Aminotransferase 27 IU/L (14-36); BUN Creatinine Ratio 28.3 (6-22); Bilirubin Total 1.2 mg/dL (0.2-1.3); Blood Urea Nitrogen 17 mg/dL (7-17); Calcium 9.9 mg/dL (8.4-10.2); Carbon Dioxide 30 mmol/L (22-32); Chloride 99 mmol/L (98-107); Estimated Glomerular Filt Rate > 60.0 mL/min (>60); Globulin 2.7 g/dL (1.7-4.1); Glucose 79 mg/dL (80-110); HEMOLYSIS < 15 (0-50); Lipase 86 U/L (23-300); Potassium 4.3 mmol/L (3.4-5.1); Sodium 138 mmol/L (137-145); Total Protein 7.2 g/dL (6.3-8.2)
[2018-08-13 11:31] LABS: Digoxin 0.5 ng/mL (0.8-2.0)
[2018-08-13 11:55] LABS: TSH w/ Reflex to FT4 < 0.02 uIU/mL (0.47-4.68)
[2018-08-13 12:20] LABS: Free T4, Direct Thyroxine 2.13 ng/dL (0.78-2.19)
== END ==
PROVIDERS: Family Provider Internal Medicine; PCP Internal Medicine; Visit Provider Internal Medicine
DX: E03.9 Hypothyroidism, unspecified (principal); R10.9 Unspecified abdominal pain; I47.1 Supraventricular tachycardia; R60.9 Edema, unspecified
CPT/HCPCS: 36415; 80053; 80162; 83690; 84439; 84443

== ENCOUNTER → 2018-10-03 12:16 | Outpatient (CLI) | payer MEDICARE, BC, SELFPAY ==
[2018-10-03 13:17] LABS: Bilirubin Urine UA NEGATIVE (NEGATIVE); Color Urine UA YELLOW; Glucose Urine UA NEGATIVE (Negative); Ketones Urine UA NEGATIVE (NEGATIVE); Leukocyte Esterase Urine UA TRACE (NEGATIVE); Nitrite Urine UA NEGATIVE (Negative); Occult Blood Urine UA 1+ (Negative); Protein Urine UA NEGATIVE (Negative); Urobilinogen Urine UA 0.2 E.U./dL (0.2)
[2018-10-03 13:32] LABS: Appearance Urine UA Slightly Cloudy
[2018-10-03 13:33] LABS: Bacteria Urine Occasional (0-1); Culture Indicated Urine Specimen Cultured; RBC Urine 0-1/HPF (0-5/HPF); Squamous Epithelial Cell Urine 0-1 /HPF (0-5/HPF); WBC Urine 10-30/HPF (0-5/HPF)
== END ==
PROVIDERS: Family Provider Internal Medicine; PCP Internal Medicine; Visit Provider Internal Medicine
DX: R30.0 Dysuria (principal)
CPT/HCPCS: 81001; 87077; 87086; 87186

== ENCOUNTER → 2018-12-13 07:11 | Outpatient (CLI) | payer MEDICARE, BC, SELFPAY ==
[2018-12-13 07:21] LABS: Bacteria Urine None Seen; RBC Urine None Seen (0-5/HPF); WBC Urine None Seen (0-5/HPF)
[2018-12-13 08:03] LABS: Appearance Urine UA CLEAR; Bilirubin Urine UA NEGATIVE (NEGATIVE); Color Urine UA YELLOW; Glucose Urine UA NEGATIVE (Negative); Ketones Urine UA NEGATIVE (NEGATIVE); Leukocyte Esterase Urine UA NEGATIVE (NEGATIVE); Nitrite Urine UA NEGATIVE (Negative); Occult Blood Urine UA NEGATIVE (Negative); Protein Urine UA NEGATIVE (Negative); Urobilinogen Urine UA 0.2 E.U./dL (0.2)
[2018-12-13 08:22] LABS: Digoxin 0.5 ng/mL (0.8-2.0)
[2018-12-13 08:23] LABS: BUN Creatinine Ratio 21.7 (6-22); Blood Urea Nitrogen 13 mg/dL (7-17); Calcium 10.2 mg/dL (8.4-10.2); Carbon Dioxide 31 mmol/L (22-32); Chloride 100 mmol/L (98-107); Cholesterol 173 mg/dL (140-199); Estimated Glomerular Filt Rate > 60.0 mL/min (>60); Glucose 89 mg/dL (80-110); HDL Cholesterol 54 mg/dL (40-60); HEMOLYSIS < 15 (0-50); LDL Cholesterol Calculated 78 mg/dL (<100); Potassium 4.1 mmol/L (3.4-5.1); Sodium 140 mmol/L (137-145); Triglycerides 206 mg/dL (35-150)
[2018-12-13 08:27] LABS: Culture Indicated Urine Cult Not Indicated; Urine Comments Microscopic Normal
== END ==
PROVIDERS: Family Provider Internal Medicine; PCP Internal Medicine; Visit Provider Internal Medicine Cardiovascular Disease
DX: R60.9 Edema, unspecified (principal); E78.1 Pure hyperglyceridemia; I74.10 Embolism and thrombosis of unspecified parts of aorta; R39.89 Other symptoms and signs involving the genitourinary system
CPT/HCPCS: 36415; 80048; 80061; 80162; 81001

== ENCOUNTER → 2018-12-26 07:38 | Outpatient (CLI) | payer MEDICARE, BC, SELFPAY | PROVIDERS: PCP Internal Medicine; Visit Provider Internal Medicine Cardiovascular Disease | DX: I47.1 Supraventricular tachycardia (principal) | CPT/HCPCS: 36415; 80162 ==

== ENCOUNTER → 2019-02-03 10:46 | Outpatient (CLI) | payer MEDICARE, BC, SELFPAY ==
[2019-02-03 11:29] LABS: BUN Creatinine Ratio 21.7 (6-22); Blood Urea Nitrogen 13 mg/dL (7-17); Carbon Dioxide 30 mmol/L (22-32); Chloride 100 mmol/L (98-107); Estimated Glomerular Filt Rate > 60.0 mL/min (>60); Glucose 113 mg/dL (80-110); HEMOLYSIS < 15 (0-50); Lipase 81 U/L (23-300); Potassium 4.4 mmol/L (3.4-5.1); Sodium 139 mmol/L (137-145)
[2019-02-03 11:57] LABS: Digoxin 0.9 ng/mL (0.8-2.0)
[2019-02-03 12:12] LABS: Free T4, Direct Thyroxine 2.05 ng/dL (0.78-2.19)
[2019-02-03 12:26] LABS: Thyroid Stimulating Hormone < 0.02 uIU/mL (0.47-4.68)
== END ==
PROVIDERS: PCP Internal Medicine; Visit Provider Internal Medicine
DX: E03.9 Hypothyroidism, unspecified (principal); I47.1 Supraventricular tachycardia; K86.1 Other chronic pancreatitis
CPT/HCPCS: 36415; 80048; 80162; 83690; 84439; 84443

== ENCOUNTER → 2019-04-10 12:04 | Outpatient (CLI) | payer MEDICARE, BC, SELFPAY ==
--- NOTE | 2019-04-10 12:06 | DI.MG.S_ITS ---
BILATERAL DIGITAL SCREENING MAMMOGRAM 3D/2D WITH CAD: 04/10/2019 CLINICAL: Routine screening. Family history of breast cancer. Comparison is made to exams dated: 03/29/2018 mammogram, 01/30/2017 mammogram, and 01/27/2016 mammogram - [facility]. There are scattered fibroglandular elements in both breasts. Current study was also evaluated with a Computer Aided Detection (CAD) system. There are benign post operative findings in the left breast. No significant masses, calcifications, or other findings are seen in either breast. There has been no significant interval change. IMPRESSION: There is no mammographic evidence of malignancy. A 1 year screening mammogram is recommended. This exam was interpreted at Station ID: [id number]. NOTE: For mammograms, a report in lay terms will be sent to the patient. Approximately 15% of breast malignancies will not be visualized mammographically. In the management of a palpable breast mass, a negative mammogram must not discourage biopsy of a clinically suspicious lesion. Electronically Signed By: Ellyn stevens/jonathan:04/11/2019 10:12:59 letter sent: Normal Exam ACR BI-RADS Category 2: Benign Finding(s) 3342F
== END ==
PROVIDERS: PCP Internal Medicine; Visit Provider Internal Medicine
DX: Z12.31 Encounter for screening mammogram for malignant neoplasm of breast (principal); Z80.3 Family history of malignant neoplasm of breast
CPT/HCPCS: 77063; 77067

== ENCOUNTER → 2019-06-26 07:34 | Outpatient (CLI) | payer MEDICARE, BC, SELFPAY ==
[2019-06-26 08:56] LABS: Alanine Aminotransferase 18 IU/L (<35); Albumin 4.5 g/dL (3.5-5.0); Albumin Globulin Ratio 1.7 (1.0-2.8); Alkaline Phosphatase 82 U/L (38-126); Aspartate Aminotransferase 25 IU/L (14-36); BUN Creatinine Ratio 21.4 (6-22); Bilirubin Total 0.9 mg/dL (0.2-1.3); Blood Urea Nitrogen 15 mg/dL (7-17); Calcium 10.5 mg/dL (8.4-10.2); Carbon Dioxide 31 mmol/L (22-32); Chloride 99 mmol/L (98-107); Cholesterol 196 mg/dL (140-199); Estimated Glomerular Filt Rate > 60.0 mL/min (>60); Globulin 2.7 g/dL (1.7-4.1); Glucose 87 mg/dL (80-110); HDL Cholesterol 51 mg/dL (40-60); HEMOLYSIS < 15 (0-50); LDL Cholesterol Calculated 93 mg/dL (<100); Potassium 4.5 mmol/L (3.4-5.1); Sodium 138 mmol/L (137-145); Total Protein 7.2 g/dL (6.3-8.2); Triglycerides 259 mg/dL (35-150)
[2019-06-26 08:57] LABS: Digoxin 1.1 ng/mL (0.8-2.0)
== END ==
PROVIDERS: PCP Internal Medicine; Referring Provider Internal Medicine Cardiovascular Disease; Visit Provider Internal Medicine Cardiovascular Disease
DX: E78.1 Pure hyperglyceridemia (principal); I47.1 Supraventricular tachycardia
CPT/HCPCS: 36415; 80053; 80061; 80162

== ENCOUNTER → 2019-07-03 10:04 | Outpatient (CLI) | payer MEDICARE, BC, SELFPAY ==
[2019-07-03 11:38] LABS: Digoxin 0.8 ng/mL (0.8-2.0)
[2019-07-03 11:43] LABS: Alanine Aminotransferase 16 IU/L (<35); Albumin 4.6 g/dL (3.5-5.0); Albumin Globulin Ratio 1.6 (1.0-2.8); Alkaline Phosphatase 79 U/L (38-126); Aspartate Aminotransferase 26 IU/L (14-36); Bilirubin Total 0.9 mg/dL (0.2-1.3); Blood Urea Nitrogen 14 mg/dL (7-17); Calcium 10.5 mg/dL (8.4-10.2); Carbon Dioxide 30 mmol/L (22-32); Chloride 98 mmol/L (98-107); Estimated Glomerular Filt Rate > 60.0 mL/min (>60); Globulin 2.9 g/dL (1.7-4.1); Glucose 93 mg/dL (80-110); HEMOLYSIS < 15 (0-50); Lipase 131 U/L (23-300); Sodium 136 mmol/L (137-145); Total Protein 7.5 g/dL (6.3-8.2)
[2019-07-03 12:09] LABS: Thyroid Stimulating Hormone 0.76 uIU/mL (0.47-4.68)
== END ==
PROVIDERS: PCP Internal Medicine; Referring Provider Internal Medicine; Visit Provider Internal Medicine
DX: E03.9 Hypothyroidism, unspecified (principal); K86.1 Other chronic pancreatitis; G62.9 Polyneuropathy, unspecified; I47.1 Supraventricular tachycardia
CPT/HCPCS: 36415; 80053; 80162; 83690; 84439; 84443

== ENCOUNTER → 2020-01-16 07:38 | Outpatient (CLI) | payer MEDICARE, BC, SELFPAY ==
[2020-01-16 09:21] LABS: BUN Creatinine Ratio 19.7 (6-22); Blood Urea Nitrogen 12 mg/dL (7-17); Calcium 10.1 mg/dL (8.4-10.2); Carbon Dioxide 35 mmol/L (22-32); Chloride 98 mmol/L (98-107); Estimated Glomerular Filt Rate > 60.0 mL/min (>60); Glucose 87 mg/dL (80-110); HEMOLYSIS < 15 (0-50); Potassium 4.4 mmol/L (3.4-5.1); Sodium 138 mmol/L (137-145)
[2020-01-16 09:25] LABS: Digoxin 1.2 ng/mL (0.8-2.0)
== END ==
PROVIDERS: PCP Internal Medicine; Referring Provider Internal Medicine Cardiovascular Disease; Visit Provider Internal Medicine Cardiovascular Disease
DX: R00.2 Palpitations (principal); I47.1 Supraventricular tachycardia
CPT/HCPCS: 36415; 80048; 80162

== ENCOUNTER → 2020-02-23 09:38 | Outpatient (CLI) | payer MEDICARE, BC, SELFPAY | PROVIDERS: PCP Internal Medicine; Referring Provider Internal Medicine; Visit Provider Internal Medicine | DX: Z78.0 Asymptomatic menopausal state (principal); E07.9 Disorder of thyroid, unspecified; Z90.722 Acquired absence of ovaries, bilateral | CPT/HCPCS: 77080 ==

== ENCOUNTER → 2020-04-14 08:21 | Outpatient (CLI) | payer MEDICARE, BC, SELFPAY ==
--- NOTE | 2020-04-14 | DI.MG.S_ITS ---
BILATERAL DIGITAL SCREENING MAMMOGRAM 3D/2D WITH CAD: 04/14/2020 CLINICAL: Routine screening. Family history of breast cancer. Comparison is made to exams dated: 04/10/2019 mammogram, 03/29/2018 mammogram, 01/30/2017 mammogram, 01/27/2016 mammogram, 01/25/2015 mammogram, and 01/12/2014 mammogram - [facility]. There are scattered fibroglandular elements in both breasts. Current study was also evaluated with a Computer Aided Detection (CAD) system. There are benign post operative findings in the left breast. No significant masses, calcifications, or other findings are seen in either breast. There has been no significant interval change. IMPRESSION: BENIGN There is no mammographic evidence of malignancy. A 1 year screening mammogram is recommended. This exam was interpreted at Station ID: [id number]. NOTE: For mammograms, a report in lay terms will be sent to the patient. Approximately 15% of breast malignancies will not be visualized mammographically. In the management of a palpable breast mass, a negative mammogram must not discourage biopsy of a clinically suspicious lesion. Electronically Signed By: Andrey brown/jonathan:04/14/2020 09:23:09 letter sent: Normal Exam ACR BI-RADS Category 2: Benign Finding(s) 3342F
== END ==
PROVIDERS: PCP Internal Medicine; Referring Provider Internal Medicine; Visit Provider Internal Medicine
DX: Z12.31 Encounter for screening mammogram for malignant neoplasm of breast (principal); Z80.3 Family history of malignant neoplasm of breast
CPT/HCPCS: 77063; 77067

== ENCOUNTER → 2020-05-21 09:17 | Outpatient (CLI) | payer MEDICARE, BC, SELFPAY ==
[2020-05-21] MEDS: COVID-19 VACC #1, MRNA(MOD) 100 MCG/0.5 ML VIAL IM (09:28)
== END ==
PROVIDERS: PCP Internal Medicine; Visit Provider Internal Medicine
DX: Z23 Encounter for immunization (principal)
CPT/HCPCS: 0011A; 91301

== ENCOUNTER → 2020-06-18 09:06 | Outpatient (CLI) | payer MEDICARE, BC, SELFPAY ==
[2020-06-18] MEDS: COVID-19 VACC #2, MRNA(MOD) 100 MCG/0.5 ML VIAL IM (09:10)
== END ==
PROVIDERS: PCP Internal Medicine; Visit Provider Internal Medicine
DX: Z23 Encounter for immunization (principal)
CPT/HCPCS: 0012A; 91301

== ENCOUNTER → 2020-08-02 09:44 | Outpatient (CLI) | payer MEDICARE, BC, SELFPAY ==
[2020-08-02 10:54] LABS: Alanine Aminotransferase 19 IU/L (<35); Albumin 4.5 g/dL (3.5-5.0); Albumin Globulin Ratio 1.6 (1.0-2.8); Alkaline Phosphatase 67 U/L (38-126); Aspartate Aminotransferase 28 IU/L (14-36); BUN Creatinine Ratio 22.4 (6-22); Bilirubin Total 0.8 mg/dL (0.2-1.3); Blood Urea Nitrogen 13 mg/dL (7-17); Calcium 10.4 mg/dL (8.4-10.2); Carbon Dioxide 28 mmol/L (22-32); Chloride 99 mmol/L (98-107); Estimated Glomerular Filt Rate > 60.0 mL/min (>60); Globulin 2.8 g/dL (1.7-4.1); Glucose 123 mg/dL (80-110); HEMOLYSIS < 15 (0-50); Lipase 96 U/L (23-300); Potassium 4.3 mmol/L (3.4-5.1); Sodium 136 mmol/L (137-145); Total Protein 7.3 g/dL (6.3-8.2)
[2020-08-02 11:48] LABS: Free T4, Direct Thyroxine 1.65 ng/dL (0.78-2.19)
[2020-08-02 12:01] LABS: Thyroid Stimulating Hormone 0.914 uIU/mL (0.47-4.68)
== END ==
PROVIDERS: PCP Internal Medicine; Referring Provider Internal Medicine; Visit Provider Internal Medicine
DX: E03.9 Hypothyroidism, unspecified (principal); E83.52 Hypercalcemia; I47.1 Supraventricular tachycardia; K86.1 Other chronic pancreatitis
CPT/HCPCS: 80053; 80162; 83690; 84439; 84443

== ENCOUNTER → 2020-10-01 07:38 | Outpatient (CLI) | payer MEDICARE, BC, SELFPAY ==
[2020-10-01 09:18] LABS: Cholesterol 168 mg/dL (140-199); HDL Cholesterol 56 mg/dL (40-60); LDL Cholesterol Calculated 84 mg/dL (<100); Triglycerides 141 mg/dL (35-150)
== END ==
PROVIDERS: PCP Internal Medicine; Referring Provider Internal Medicine Cardiovascular Disease; Visit Provider Internal Medicine Cardiovascular Disease
DX: E78.1 Pure hyperglyceridemia (principal)
CPT/HCPCS: 36415; 80061

== ENCOUNTER → 2021-02-01 07:08 | Outpatient (CLI) | payer MEDICARE, BC, SELFPAY ==
[2021-02-01 09:13] LABS: Alanine Aminotransferase 19 IU/L (<35); Albumin 4.4 g/dL (3.5-5.0); Albumin Globulin Ratio 1.6 (1.0-2.8); Alkaline Phosphatase 77 U/L (38-126); Amylase 108 U/L (30-110); Aspartate Aminotransferase 27 IU/L (14-36); BUN Creatinine Ratio 26.8 (6-22); Bilirubin Total 0.7 mg/dL (0.2-1.3); Blood Urea Nitrogen 15 mg/dL (7-17); Calcium 9.9 mg/dL (8.4-10.2); Carbon Dioxide 31 mmol/L (22-32); Chloride 98 mmol/L (98-107); Estimated Glomerular Filt Rate > 60.0 mL/min (>60); Globulin 2.7 g/dL (1.7-4.1); Glucose 89 mg/dL (80-110); HEMOLYSIS < 15 (0-50); Lipase 452 U/L (23-300); Potassium 4.2 mmol/L (3.4-5.1); Sodium 135 mmol/L (137-145); Total Protein 7.1 g/dL (6.3-8.2)
[2021-02-01 09:44] LABS: Thyroid Stimulating Hormone 1.09 uIU/mL (0.47-4.68)
== END ==
PROVIDERS: PCP Internal Medicine; Referring Provider Internal Medicine; Visit Provider Internal Medicine
DX: E03.9 Hypothyroidism, unspecified (principal); E83.52 Hypercalcemia; K86.1 Other chronic pancreatitis
CPT/HCPCS: 36415; 80053; 82150; 83690; 84439; 84443

== ENCOUNTER → 2021-05-09 15:46 | Outpatient (CLI) | payer MEDICARE, BC, SELFPAY ==
[2021-05-09 17:33] LABS: Digoxin 0.8 ng/mL (0.8-2.0)
== END ==
PROVIDERS: PCP Internal Medicine; Referring Provider Internal Medicine Cardiovascular Disease; Visit Provider Internal Medicine Cardiovascular Disease
DX: I47.1 Supraventricular tachycardia (principal)
CPT/HCPCS: 36415; 80162

== ENCOUNTER → 2021-05-10 10:46 | Outpatient (CLI) | payer MEDICARE, BC, SELFPAY ==
--- NOTE | 2021-05-10 | DI.MG.S_ITS ---
BILATERAL DIGITAL SCREENING MAMMOGRAM 3D/2D WITH CAD: 05/10/2021 CLINICAL: Routine screening. Family history of breast cancer. Comparison is made to exams dated: 04/14/2020 mammogram, 04/10/2019 mammogram, and 03/29/2018 mammogram - [facility]. There are scattered fibroglandular elements in both breasts. Current study was also evaluated with a Computer Aided Detection (CAD) system. There are benign post operative findings in the left breast. No significant masses, calcifications, or other findings are seen in either breast. There has been no significant interval change. IMPRESSION: BENIGN There is no mammographic evidence of malignancy. A 1 year screening mammogram is recommended. This exam was interpreted at Station ID: [id number]. NOTE: For mammograms, a report in lay terms will be sent to the patient. Approximately 15% of breast malignancies will not be visualized mammographically. In the management of a palpable breast mass, a negative mammogram must not discourage biopsy of a clinically suspicious lesion. Electronically Signed By: Vladimir kaur/jonathan:05/10/2021 14:14:12 letter sent: Normal Exam ACR BI-RADS Category 2: Benign Finding(s) 3342F
== END ==
PROVIDERS: PCP Internal Medicine; Referring Provider Internal Medicine; Visit Provider Internal Medicine
DX: Z12.31 Encounter for screening mammogram for malignant neoplasm of breast (principal)
CPT/HCPCS: 77063; 77067

== ENCOUNTER → 2022-03-23 08:40 | Outpatient (CLI) | payer MEDICARE, BC, SELFPAY ==
[2022-03-23 09:57] LABS: Digoxin 0.8 ng/mL (0.8-2.0)
[2022-03-23 10:03] LABS: BUN Creatinine Ratio 25.8 (6-22); Blood Urea Nitrogen 16 mg/dL (7-17); Calcium 9.7 mg/dL (8.4-10.2); Carbon Dioxide 30 mmol/L (22-32); Chloride 98 mmol/L (98-107); Estimated Glomerular Filt Rate > 60 mL/min (>60); Glucose 78 mg/dL (80-110); HEMOLYSIS < 15 (0-50); Potassium 4.1 mmol/L (3.4-5.1); Sodium 135 mmol/L (137-145)
== END ==
PROVIDERS: PCP Internal Medicine; Referring Provider Nurse Practitioner Family; Visit Provider Nurse Practitioner Family
DX: I47.1 Supraventricular tachycardia (principal)
CPT/HCPCS: 36415; 80048; 80162

== ENCOUNTER → 2022-05-12 07:51 | Outpatient (CLI) | payer MEDICARE, BC, SELFPAY ==
--- NOTE | 2022-05-12 | DI.MG.S_ITS ---
BILATERAL DIGITAL SCREENING MAMMOGRAM 3D/2D WITH CAD: 05/12/2022 CLINICAL: Routine screening. Family history of breast cancer. Comparison is made to exams dated: 05/10/2021 mammogram, 04/14/2020 mammogram, and 04/10/2019 mammogram - [facility]. There are scattered areas of fibroglandular density in both breasts (category b / 25%-50% glandular tissue). Current study was also evaluated with a Computer Aided Detection (CAD) system. There are benign post operative findings in the left breast. No significant masses, calcifications, or other findings are seen in either breast. There has been no significant interval change. IMPRESSION: BENIGN There is no mammographic evidence of malignancy. A 1 year screening mammogram is recommended. Based on the Tyrer Cuzick model (a risk assessment model) the patient's lifetime risk is 2.3% and her 10 year risk is 0.0%. According to the ACR, ACS, and NCCN guidelines, an annual breast MRI exam along with mammogram is recommended if the patient's lifetime risk is 20% or greater. This exam was interpreted at Station ID: [id number]. NOTE: For mammograms, a report in lay terms will be sent to the patient. Approximately 15% of breast malignancies will not be visualized mammographically. In the management of a palpable breast mass, a negative mammogram must not discourage biopsy of a clinically suspicious lesion. Electronically Signed By: Nikhil frazier/jonathan:05/12/2022 09:58:12 letter sent: Normal Exam ACR BI-RADS Category 2: Benign Finding(s) 3342F
== END ==
PROVIDERS: PCP Internal Medicine; Referring Provider Internal Medicine; Visit Provider Internal Medicine
DX: Z12.31 Encounter for screening mammogram for malignant neoplasm of breast (principal); Z80.3 Family history of malignant neoplasm of breast
CPT/HCPCS: 77063; 77067

== ENCOUNTER → 2022-05-23 07:09 | Outpatient (CLI) | payer MEDICARE, BC, SELFPAY ==
[2022-05-23 07:58] LABS: Alanine Aminotransferase 20 IU/L (<35); Albumin 4.4 g/dL (3.5-5.0); Albumin Globulin Ratio 1.4 (1.0-2.8); Alkaline Phosphatase 123 U/L (38-126); Aspartate Aminotransferase 26 IU/L (14-36); BUN Creatinine Ratio 22.2 (6-22); Bilirubin Total 1.3 mg/dL (0.2-1.3); Blood Urea Nitrogen 14 mg/dL (7-17); Calcium 9.7 mg/dL (8.4-10.2); Carbon Dioxide 31 mmol/L (22-32); Chloride 91 mmol/L (98-107); Estimated Glomerular Filt Rate > 60 mL/min (>60); Globulin 3.1 g/dL (1.7-4.1); Glucose 88 mg/dL (80-110); HEMOLYSIS < 15 (0-50); Lipase 125 U/L (23-300); Potassium 4.4 mmol/L (3.4-5.1); Sodium 133 mmol/L (137-145); Total Protein 7.5 g/dL (6.3-8.2)
[2022-05-23 08:03] LABS: Digoxin 1.1 ng/mL (0.8-2.0)
[2022-05-23 08:15] LABS: Free T4, Direct Thyroxine 1.95 ng/dL (0.78-2.19)
[2022-05-23 08:28] LABS: Thyroid Stimulating Hormone 1.29 uIU/mL (0.47-4.68)
== END ==
PROVIDERS: PCP Internal Medicine; Referring Provider Internal Medicine; Visit Provider Internal Medicine
DX: E03.9 Hypothyroidism, unspecified (principal); E83.52 Hypercalcemia; G62.9 Polyneuropathy, unspecified; K86.1 Other chronic pancreatitis; I47.1 Supraventricular tachycardia
CPT/HCPCS: 36415; 80053; 80162; 83690; 84439; 84443

== ENCOUNTER → 2022-09-22 08:00 | Outpatient (CLI) | payer MEDICARE, BC, SELFPAY ==
[2022-09-22 09:58] LABS: BUN Creatinine Ratio 27.5 (6-22); Blood Urea Nitrogen 19 mg/dL (7-17); Calcium 9.8 mg/dL (8.4-10.2); Carbon Dioxide 32 mmol/L (22-32); Chloride 95 mmol/L (98-107); Estimated Glomerular Filt Rate > 60 mL/min (>60); Glucose 75 mg/dL (80-110); HEMOLYSIS < 15 (0-50); Potassium 4.4 mmol/L (3.4-5.1); Sodium 134 mmol/L (137-145)
[2022-09-22 10:07] LABS: Digoxin 0.8 ng/mL (0.8-2.0)
== END ==
PROVIDERS: PCP Internal Medicine; Referring Provider Internal Medicine Cardiovascular Disease; Visit Provider Internal Medicine Cardiovascular Disease
DX: I47.1 Supraventricular tachycardia (principal)
CPT/HCPCS: 36415; 80048; 80162

== ENCOUNTER → 2023-05-07 07:38 | Outpatient (CLI) | payer MEDICARE, SELFPAY ==
[2023-05-07 08:43] LABS: Lipase 96 U/L (23-300)
== END ==
PROVIDERS: PCP Internal Medicine; Referring Provider Internal Medicine Cardiovascular Disease; Visit Provider Internal Medicine Cardiovascular Disease
DX: E78.1 Pure hyperglyceridemia (principal)
CPT/HCPCS: 36415; 83690

== ENCOUNTER → 2023-05-14 11:14 | Outpatient (CLI) | payer MEDICARE, SELFPAY ==
--- NOTE | 2023-05-14 11:15 | DI.MG.S_ITS ---
BILATERAL DIGITAL SCREENING MAMMOGRAM 3D/2D WITH CAD: 05/14/2023 CLINICAL: Routine screening. Family history of breast cancer. Comparison is made to exams dated: 05/12/2022 mammogram, 05/10/2021 mammogram, and 04/14/2020 mammogram - [facility]. There are scattered areas of fibroglandular density in both breasts (category b / 25%-50% glandular tissue). Current study was also evaluated with a Computer Aided Detection (CAD) system. There are benign post operative findings in the left breast. No significant masses, calcifications, or other findings are seen in either breast. There has been no significant interval change. IMPRESSION: BENIGN There is no mammographic evidence of malignancy. A 1 year screening mammogram is recommended. Based on the Tyrer Cuzick model (a risk assessment model) the patient's lifetime risk is 1.1% and her 10 year risk is 0.0%. According to the ACR, ACS, and NCCN guidelines, an annual breast MRI exam along with mammogram is recommended if the patient's lifetime risk is 20% or greater. This exam was interpreted at Station ID: [id number]. NOTE: For mammograms, a report in lay terms will be sent to the patient. Approximately 15% of breast malignancies will not be visualized mammographically. In the management of a palpable breast mass, a negative mammogram must not discourage biopsy of a clinically suspicious lesion. Electronically Signed By: Sami ward/jonathan:05/14/2023 18:56:37 letter sent: Normal Exam ACR BI-RADS Category 2: Benign Finding(s) 3342F
== END ==
LOC: MAMMO 11:14
PROVIDERS: PCP Internal Medicine; Referring Provider Internal Medicine; Visit Provider Internal Medicine
DX: Z12.31 Encounter for screening mammogram for malignant neoplasm of breast (principal); Z80.3 Family history of malignant neoplasm of breast; R92.323 Mammographic fibroglandular density, bilateral breasts
CPT/HCPCS: 77063; 77067

== ENCOUNTER → 2023-05-17 17:14 | Outpatient (CLI) | payer MEDICARE, SELFPAY ==
[2023-05-17 18:12] LABS: BUN Creatinine Ratio 26.3 (6-22); Blood Urea Nitrogen 15 mg/dL (7-17); Calcium 10.2 mg/dL (8.4-10.2); Carbon Dioxide 29 mmol/L (22-32); Chloride 93 mmol/L (98-107); Estimated Glomerular Filt Rate > 60 mL/min (>60); Glucose 103 mg/dL (80-110); HEMOLYSIS < 15 (0-50); Potassium 4.1 mmol/L (3.4-5.1); Sodium 132 mmol/L (137-145)
[2023-05-17 18:15] LABS: Digoxin 0.6 ng/mL (0.8-2.0)
== END ==
PROVIDERS: PCP Internal Medicine; Referring Provider Internal Medicine Cardiovascular Disease; Visit Provider Internal Medicine Cardiovascular Disease
DX: I47.10 Supraventricular tachycardia, unspecified (principal)
CPT/HCPCS: 36415; 80048; 80162

== ENCOUNTER → 2023-10-23 10:33 | Outpatient (CLI) | payer MEDICARE, SELFPAY ==
[2023-10-23 11:41] LABS: Alanine Aminotransferase 21 IU/L (<35); Albumin 4.5 g/dL (3.5-5.0); Albumin Globulin Ratio 1.6 (1.0-2.8); Alkaline Phosphatase 89 U/L (38-126); Aspartate Aminotransferase 31 IU/L (14-36); BUN Creatinine Ratio 25.8 (6-22); Bilirubin Total 1.3 mg/dL (0.2-1.3); Blood Urea Nitrogen 17 mg/dL (7-17); Calcium 9.6 mg/dL (8.4-10.2); Carbon Dioxide 28 mmol/L (22-32); Chloride 99 mmol/L (98-107); Estimated Glomerular Filt Rate > 60 mL/min (>60); Globulin 2.9 g/dL (1.7-4.1); Glucose 111 mg/dL (80-110); HEMOLYSIS < 15 (0-50); Lipase 98 U/L (23-300); Potassium 4.4 mmol/L (3.4-5.1); Sodium 134 mmol/L (137-145); Total Protein 7.4 g/dL (6.3-8.2)
[2023-10-23 11:45] LABS: Digoxin 0.9 ng/mL (0.8-2.0)
[2023-10-23 11:57] LABS: Free T4, Direct Thyroxine 1.55 ng/dL (0.78-2.19)
[2023-10-23 12:10] LABS: Thyroid Stimulating Hormone 0.631 uIU/mL (0.47-4.68)
== END ==
PROVIDERS: PCP Internal Medicine; Referring Provider Internal Medicine Cardiovascular Disease; Visit Provider Internal Medicine Cardiovascular Disease
DX: R60.9 Edema, unspecified (principal); E03.9 Hypothyroidism, unspecified; R00.2 Palpitations; K86.1 Other chronic pancreatitis
CPT/HCPCS: 36415; 80053; 80162; 83690; 84439; 84443

== ENCOUNTER → 2023-11-19 15:43 | Outpatient (CLI) | payer MEDICARE, SELFPAY ==
[2023-11-19 17:50] LABS: Digoxin 0.4 ng/mL (0.8-2.0)
[2023-11-19 17:54] LABS: Cholesterol 173 mg/dL (140-199); HDL Cholesterol 52 mg/dL (40-60); LDL Cholesterol Calculated 88 mg/dL (<100); Triglycerides 163 mg/dL (35-150)
== END ==
PROVIDERS: PCP Internal Medicine; Referring Provider Internal Medicine Cardiovascular Disease; Visit Provider Internal Medicine Cardiovascular Disease
DX: E78.1 Pure hyperglyceridemia (principal); I47.0 Re-entry ventricular arrhythmia; R00.2 Palpitations; Z82.3 Family history of stroke
CPT/HCPCS: 36415; 80061; 80162

== ENCOUNTER → 2024-05-09 07:26 | Outpatient (CLI) | payer MEDICARE, SELFPAY ==
[2024-05-09 09:21] LABS: Digoxin 0.9 ng/mL (0.8-2.0)
[2024-05-09 09:24] LABS: BUN Creatinine Ratio 18.7 (6-22); Blood Urea Nitrogen 14 mg/dL (7-17); Calcium 9.7 mg/dL (8.4-10.2); Carbon Dioxide 30 mmol/L (22-32); Chloride 98 mmol/L (98-107); Estimated Glomerular Filt Rate > 60 mL/min (>60); Glucose 91 mg/dL (80-110); HEMOLYSIS < 15 (0-50); Potassium 4.5 mmol/L (3.4-5.1); Sodium 133 mmol/L (137-145)
== END ==
PROVIDERS: PCP Internal Medicine; Referring Provider Internal Medicine Cardiovascular Disease; Visit Provider Internal Medicine Cardiovascular Disease
DX: I47.10 Supraventricular tachycardia, unspecified (principal)
CPT/HCPCS: 36415; 80048; 80162

== ENCOUNTER → 2024-05-20 08:08 | Outpatient (CLI) | payer MEDICARE, SELFPAY ==
--- NOTE | 2024-05-20 | DI.MG.S_ITS ---
BILATERAL DIGITAL SCREENING MAMMOGRAM 3D/2D WITH CAD: 05/20/2024 CLINICAL: Routine screening. Family history of breast cancer. Comparison is made to exams dated: 05/14/2023 mammogram, 05/12/2022 mammogram, and 05/10/2021 mammogram - [facility]. There are scattered areas of fibroglandular density (category b / 25%-50% glandular tissue). Current study was also evaluated with a Computer Aided Detection (CAD) system. There are benign post operative findings in the left breast. No significant masses, calcifications, or other findings are seen in either breast. There has been no significant interval change. IMPRESSION: BENIGN There is no mammographic evidence of malignancy. A 1 year screening mammogram is recommended. Based on the Tyrer Cuzick model (a risk assessment model) the patient's lifetime risk is 0.8% and her 10 year risk is 0.0%. According to the ACR, ACS, and NCCN guidelines, an annual breast MRI exam along with mammogram is recommended if the patient's lifetime risk is 20% or greater. This exam was interpreted at Station ID: [id number]. NOTE: For mammograms, a report in lay terms will be sent to the patient. Approximately 15% of breast malignancies will not be visualized mammographically. In the management of a palpable breast mass, a negative mammogram must not discourage biopsy of a clinically suspicious lesion. Electronically Signed By: Andrey brown/jonathna:05/20/2024 14:22:54 letter sent: Normal Exam ACR BI-RADS Category 2: Benign
== END ==
PROVIDERS: PCP Internal Medicine; Referring Provider Internal Medicine; Visit Provider Internal Medicine
DX: Z12.31 Encounter for screening mammogram for malignant neoplasm of breast (principal); Z80.3 Family history of malignant neoplasm of breast
CPT/HCPCS: 77063; 77067

== ENCOUNTER → 2024-05-22 07:09 | Outpatient (CLI) | payer MEDICARE, SELFPAY ==
[2024-05-22 08:13] LABS: BUN Creatinine Ratio 28.8 (6-22); Blood Urea Nitrogen 21 mg/dL (7-17); Calcium 10.2 mg/dL (8.4-10.2); Carbon Dioxide 30 mmol/L (22-32); Chloride 97 mmol/L (98-107); Estimated Glomerular Filt Rate > 60 mL/min (>60); Glucose 94 mg/dL (80-110); HEMOLYSIS < 15 (0-50); Potassium 4.2 mmol/L (3.4-5.1); Sodium 134 mmol/L (137-145)
[2024-05-22 08:15] LABS: Digoxin 0.6 ng/mL (0.8-2.0)
== END ==
PROVIDERS: PCP Internal Medicine; Referring Provider Internal Medicine Cardiovascular Disease; Visit Provider Internal Medicine Cardiovascular Disease
DX: I47.10 Supraventricular tachycardia, unspecified (principal)
CPT/HCPCS: 36415; 80048; 80162

== ENCOUNTER → 2024-11-17 11:59 | Outpatient (ROUT) | payer MEDICARE, SELFPAY | PROVIDERS: PCP Internal Medicine; Visit Provider Dermatology | DX: D48.5 Neoplasm of uncertain behavior of skin (principal) | CPT/HCPCS: 87070; 87205 ==

== ENCOUNTER → 2024-11-20 15:46 | Outpatient (CLI) | payer MEDICARE, SELFPAY ==
[2024-11-20 17:25] LABS: Alanine Aminotransferase 18 IU/L (<35); Albumin 4.6 g/dL (3.5-5.0); Albumin Globulin Ratio 1.6 (1.0-2.8); Alkaline Phosphatase 85 U/L (38-126); Blood Urea Nitrogen 18 mg/dL (7-17); Calcium 9.8 mg/dL (8.4-10.2); Carbon Dioxide 27 mmol/L (22-32); Chloride 95 mmol/L (98-107); Cholesterol 149 mg/dL (140-199); Estimated Glomerular Filt Rate > 60 mL/min (>60); Globulin 2.9 g/dL (1.7-4.1); Glucose 120 mg/dL (70-99); HDL Cholesterol 55 mg/dL (40-60); HEMOLYSIS < 15 (0-50); Lipase 107 U/L (23-300); Potassium 4.6 mmol/L (3.4-5.1); Sodium 133 mmol/L (137-145); Total Protein 7.5 g/dL (6.3-8.2); Triglycerides 107 mg/dL (35-150)
[2024-11-20 17:33] LABS: Digoxin < 0.4 ng/mL (0.8-2.0)
[2024-11-20 17:45] LABS: Free T4, Direct Thyroxine 1.61 ng/dL (0.78-2.19)
[2024-11-20 17:59] LABS: Thyroid Stimulating Hormone 0.972 uIU/mL (0.47-4.68)
== END ==
PROVIDERS: PCP Internal Medicine; Referring Provider Internal Medicine Cardiovascular Disease; Visit Provider Internal Medicine Cardiovascular Disease
DX: E03.9 Hypothyroidism, unspecified (principal); I47.10 Supraventricular tachycardia, unspecified; R60.9 Edema, unspecified; Z79.899 Other long term (current) drug therapy; K86.1 Other chronic pancreatitis; E83.52 Hypercalcemia; I47.19 Other supraventricular tachycardia
CPT/HCPCS: 36415; 80053; 80061; 80162; 83690; 84439; 84443

== ENCOUNTER → 2025-03-24 14:29 | Outpatient (CLI) | payer MEDICARE, SELFPAY ==
--- NOTE | 2025-03-24 14:36 | DI.RAD.S_ITS ---
PROCEDURE: XR TIBIA FIBULA LT 2V INDICATIONS: L ANKLE/LEG PAIN TECHNIQUE: 2 views of the tibia and fibula were acquired. COMPARISON: [facility], CR, ORTHO-XR ANKLE 3V WB LEFT, 03/24/2025, 14:43. [facility], CR, ORTHO-XR KNEE WB BILAT, 11/06/2024, 11:03. 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 Stable alignment. No evidence for hardware complication. Acute fracture or dislocation. Soft tissues: No suspicious soft tissue calcifications or masses. Likely dystrophic soft tissue calcifications involving the medial aspect of the distal left lower leg IMPRESSION: Stable postsurgical changes of left total knee arthroplasty without evidence for acute fracture or hardware complication. Dictated by: Sami Yung M.D. on 03/24/2025 at 23:32 Approved by: Sami Yung M.D. on 03/24/2025 at 23:34
--- NOTE | 2025-03-24 14:36 | DI.RAD.S_ITS ---
PROCEDURE: ORTHO-XR ANKLE 3V WB LEFT COMPARISON: None. INDICATIONS: L ANKLE/LEG PAIN FINDINGS: 3 weight-bearing views of the left ankle were acquired. Osseous structures appear intact without acute fracture or dislocation. Mild degenerative changes of the tibiotalar joint predominantly anteriorly. Minimal degenerative changes of the dorsal midfoot. Chronic appearing, likely heterotopic calcifications over the medial, distal left lower leg. IMPRESSION: Left ankle without acute fracture or dislocation. Mild degenerative changes of the dorsal midfoot and tibiotalar joint. If there are persistent symptoms or clinical suspicion for pathology, then repeat radiographs or advanced imaging (CT or MRI) may be considered for further evaluation. Dictated by: Sami Yung M.D. on 03/24/2025 at 23:35 Approved by: Sami Yung M.D. on 03/24/2025 at 23:36
== END ==
LOC: RAD 14:34
PROVIDERS: PCP Internal Medicine; Referring Provider Podiatrist Foot & Ankle Surgery; Visit Provider Podiatrist Foot & Ankle Surgery
DX: M25.572 Pain in left ankle and joints of left foot (principal); Z96.652 Presence of left artificial knee joint
CPT/HCPCS: 73590; 73610